=== PATIENT | male | born 1990 | race Two or more races ===

== ENCOUNTER 2024-11-14 19:45 | Emergency (ER) | payer MEDICAID, SELFPAY ==
[2024-11-14 20:02] VITALS: BP 125/70; PULSE 70; RESP 18; TEMP 36.4; O2SAT 97; BMI 29.9
--- NOTE | 2024-11-14 20:02 | ED.GENADULT ---
HPI - General Adult General Chief complaint: Skin/Abscess/Foreign Body Stated complaint: allergic reation to bed bugs? Source: patient, RN notes reviewed and old records reviewed Mode of arrival: ambulatory Limitations: no limitations History of Present Illness ED Provider: Aylin [facility] narrative: Patient is a 34-year-old male presenting to the emergency department with complaint of a mildly pruritic rash to bilateral legs and trunk for the past week. States that he is concerned about bedbugs as he recently moved. Denies any fevers, systemic symptoms. Denies any known contact with allergens. MD complaint: Rash Onset (ago): week(s) Related Data Previous Rx's ?Medication ?Instructions ?Recorded ketoconazole 2 % shampoo 1 appl topical 3XW 2 weeks #120 mL 11/14/24 Allergies Allergy/AdvReac Type Severity Reaction Status Date / Time No Known Allergies Allergy Verified 11/14/24 20:04 Review of Systems Review of Systems: as per HP Yes all other systems are reviewed and are negative Constitutional: Constitutional: Reports as per [facility] Physical Exam ED Vital Signs: Vital signs have been reviewed and appear to be correct. Blood pressure normal. Heart rate normal. Respiratory rate normal. Temperature normal. Oxygen saturation normal. Const General: cooperative, healthy appearing and no acute distress Orientation/consciousness: oriented to person, oriented to place, oriented to time and patient oriented x3 Limitations: no limitations HENMT Head: Yes normocephalic and Yes atraumatic Ears: external ears normal General nose exam: Normal external nose present Face and sinus: Yes face symmetric Mouth: oropharynx normal and moist mucous membranes Throat: Yes uvula midline Eyes Pupils: Equal, round and reactive pupils present Neck Neck: Yes normal visual inspection and Yes supple Resp Effort & Inspection: normal respiratory effort and able to speak in complete sentences Auscultation: clear to auscultation bilaterally Cardio Rate: regular rate Rhythm: regular rhythm Heart sounds: S1 normal heart sound present and S2 normal heart sound present GI Palpation (GI): Soft to palpation and nontender Auscultation: normoactive bowel sounds General: Yes no CVA tenderness Back/Spine/Pelvis Back: no CVA tenderness Skin General skin exam: elasticity normal and turgor normal Rashes: rashes noted (hyperpigmented macules of varying sizes to trunk, lower extremities) macules diffuse Neuro General: oriented to person, oriented to place, oriented to time, patient oriented x3, moves all extremities, no focal motor deficits and CN's II-XI intact bilaterally Cranial nerves: Yes Equal, round and reactive pupils present Cognition (Neuro): normal cognition Extrem General: Yes full ROM, Yes no pedal edema and Yes no calf tenderness Psych Mental Status: mental status grossly normal Affect: normal affect Thought process: Normal thought process present Medical Decision Making Medical Decision Making [facility] Narrative: Patient is a 34-year-old male presenting to the emergency department with complaint of a mildly pruritic rash to bilateral legs and trunk for the past week. On exam patient is awake, A+Ox3, VS WNL, afebrile, normal neurological exam without focal deficits, physical exam findings as above. Given reported symptoms and physical exam findings, initial differential includes but is not limited to tinea versicolor, contact dermatitis, seborrheic dermatitis. Rash is not consistent with bed bugs. Do not suspect TEN/SJS, DRESS, TTP/DIC, necrotizing fasciitis, meningococcemia, SSSS, TSS, anaphylaxis. will treat patient with ketoconazole shampoo. Discussed with patient the importance of washing his bedding, towels, clothing in hot soapy water and drying thoroughly. Instructed patient to allow the skin to remain open to air as much as possible at home. Instructed patient not to use bath towels. Return precautions discussed. Patient verbalized understanding of and agreement with plan. Differential Diagnosis Differential Diagnoses: The differential diagnosis associated with the presentation includes As per [facility] External Record Review External record reviewed: Inpatient record, Office record and Outpatient record Prescription Management I considered prescription management with: Other Discharge Plan Discharge Clinical Impression: Tinea versicolor Patient Disposition: Home, Self-Care Instructions: Tinea Versicolor (ED) Additional Instructions: You were evaluated in the emergency department today for a rash. Your rash is consistent with tinea versicolor which is a fungal infection of the skin. You are being treated with a topical antifungal shampoo. Use this as prescribed, applying the shampoo to all areas of your body with the rash. it is important that you wash all your clothing, bedding, towels in hot soapy water and dry them thoroughly. Do not or use bath towels without washing them. At home, allow your skin to be open to air as much as possible. Follow up with your primary care provider for ongoing symptoms. Return to the emergency department for any new or concerning symptoms. Prescriptions: New ketoconazole 2 % shampoo 1 appl topical 3XW 14 Days Qty: 120 1RF Print Language: Sierra Leonean
--- OUTSIDE RECORDS SUMMARY | 2024-11-14 20:25 | XMS_ITS ---
Author Organization [facility] Address [address] [place] [phone] Care Team Providers Care Workforce Planning Analyst Name Role Phone Baljit Foy Primary Care Provider REASON FOR VISIT lab result Encounters Encounter Location Date Provider Diagnosis [address] [id number] 11/01/2024 Baljit Foy Plan Of Treatment Next Appt Details Provider Name:Baljit Foy, 04/01/2025 02:00:00 PM, [address] [place] [address], [phone], Progress Notes * SUKHJINDER MckenziedayamiDOB: 1 (34 yo M)Acc No.[id number]:11/01/2024 Patient:?Burt SLAUGHTER :1990???Age:34 Y???Sex:Male Address:[address] [place] [address], [address] [address] * true * Date:? Generated for Nani dorota/Misa/eTransmitting on:?11/14/2024 08:24 PM EDT
--- OUTSIDE RECORDS SUMMARY | 2024-11-14 20:25 | XMS_ITS | Encounter Summary ---
Author Organization [facility] Address [address] [place] [address] Phone Care Team Providers Care Thermoforming Operator Name Role Phone Morteza Kamara MD Primary Care Provider Unavailabl e Encounter Details Date Type Department Care Team (Late st Contact Info) Description 03/30/2017 Conversion Encounter [facility] - [address] [address] Social History Tobacco Use Types Packs/Day Years Used Date Smoking Tobacco: Never Assessed Sex and Gender Information Value Date Recorded Sex Assigned at Not on file Legal Sex Male 4:22 PM EDT Gender Identity Not on file Sexual Orientation Not on file documented as of this encounter Plan of Treatment Not on file documented as of this encounter Visit Diagnoses Not on filedocumented in this encounter Care Teams Thermoforming Operator Relationship Specialty Start Date End Date Morteza Kamara MD PCP - General 03/24/17 documented as of this encounter
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
--- OUTSIDE RECORDS SUMMARY | 2024-11-14 20:25 | XMS_ITS | Encounter Summary ---
Author Organization [facility] Address [address] [place] [address] Care Team Providers Care Casino Gaming Inspector Name Role Phone Baljit Foy MD Primary Care Provider [phone] Encounter Details Date Type Department Care Team (Late st Contact Info) Description 10/24/2024 Lab Requisition [facility] - Main Lab [address] [place] [address] Baljit Foy MD [address] [place] [address] Unspecified infectious disease Social History Tobacco Use Types Packs/Day Years Used Date Smoking Tobacco: Never Assessed Sex and Gender Information Value Date Recorded Sex Assigned at Not on file Legal Sex Male 5:52 PM EDT Gender Identity Not on file Sexual Orientation Not on file documented as of this encounter Plan of Treatment Not on file documented as of this encounter Procedures Procedure Name Priority Date/Time Associated Diagnosis Comments OVA AND PARASITE EXAMINATION Routine 10/24/2024 10:08 AM EDT Unspecified infectious disease PINWORM PREP Routine 10/24/2024 10:08 AM EDT Unspecified infectious disease documented in this encounter Results * Pinworm prep (10/24/2024 10:08 AM EDT) Pinworm Prep Negative for E. vermicularis (PINWORM) eggs and Adult worms Negative 10/24/2024 7:07 PM EDT [facility] Paddle Anal structure / Unknown 10/24/2024 10:08 AM EDT 10/24/2024 6:03 PM EDT us Baljit Foy MD LAB MICROBIOLOGY - GENERAL OR DERABLES Final Result Performing Organization Address City/[facility]/ZIP Co de Phone Number [facility] [address] [place] [address], [place] [phone] * Ova and parasite examination (10/24/2024 10:08 AM EDT) Ova and Parasite No Ova or Parasite seen. 11/05/2024 11:29 AM EDT [facility] Stool Rectum structure / Unknown 10/24/2024 10:08 AM EDT 10/24/2024 6:03 PM EDT Narrative [facility] - 11/05/2024 11:29 AM EDT Special test request required for Coccidia and Microsporidia. us Baljit Foy MD LAB MICROBIOLOGY - GENERAL OR DERABLES Final Result Performing Organization Address [facility] Co de Phone Number [facility] [address] [place] [address], [place] [phone] documented in this encounter Visit Diagnoses Diagnosis Unspecified infectious disease documented in this encounter Care Teams Casino Gaming Inspector Relationship Specialty Start Date End Date Baljit Foy MD [address] [place] [address] PCP - General Internal Medicine 10/25/24 documented as of this encounter
--- OUTSIDE RECORDS SUMMARY | 2024-11-14 20:25 | XMS_ITS | Clinical Summary ---
Author Organization [facility] Address [address] [place] [phone] Phone Care Team Providers Care Resident Care Director Name Role Phone Morteza Kamara MD Primary Care Provider Unavailabl e Immunizations Immunization Administration Dates Next Due DTaP 5 01/12/1996, 3,03/13/1992,12/11,1991 Hep B, ped/adol 04/13/1998,01/11/1997,11/11/1996 Hib (PRP-T) 12/11/1992, 2,1991,09/13 IPV 01/12/1996, 3,1991,09/13 Influenza, injectable, trivalent 07/29/2003 MMR 01/12/1996,11/11/1993,12/11/1992 Meningococcal Conj (Menactra) MCV4P 06/28/2007 Td (adult) (MBL), 2 Lf tetan us toxoid, PF, adsorbed 04/22/2004 Family History Relation Name Status Comments Father Alive Father: Alive a nd well Maternal Grandmother Materna l grandmother: Migraines Mother Alive Mother: Alive a nd well Social History Tobacco Use Types Packs/Day Years Used Date Smoking Tobacco: Never Assessed Sex and Gender Information Value Date Recorded Sex Assigned at Not on file Legal Sex Male 4:22 PM EDT Gender Identity Not on file Sexual Orientation Not on file Plan of Treatment Health Maintenance Due Date Last Done Comments DTaP,Tdap,and Td Vaccines (6 - Tdap) 04/23/2004 04/22/2004, 01/12/1996, 04/13/1993, Additional history exists Varicella Vaccines (1 of 2 - 13+ 2-dose series) 2004 Influenza Vaccines (#1) 2024 07/29/2003 COVID-19 Vaccine (1 - 2023- season) 2024 HIB Vaccines Completed 12/11/1992, 02/13, 1991, Additional history exists IPV Vaccines Completed 01/12/1996, 03/16, 1991, Additional history exists MMR Vaccines Completed 01/12/1996, 10/14, 12/11/1992 Hepatitis B Vaccines Completed 04/13/1998, 01/11/1997, 11/11/1996 Meningococcal Vaccine Aged Out 06/28/2007 No lizzeth cha eligible based on patient's age to complete this topic HPV Vaccines Aged Out No longer eligi ble based on patient's age to complete this topic Hepatitis A Vaccines Aged Out No long er eligible based on patient's age to complete this topic Men B Vaccine Aged Out No longer elig ible based on patient's age to complete this topic Pneumococcal Vaccine Aged Out No long er eligible based on patient's age to complete this topic Care Teams Resident Care Director Relationship Specialty Start Date End Date Morteza Kamara MD PCP - General 03/24/17
--- OUTSIDE RECORDS SUMMARY | 2024-11-14 20:25 | XMS_ITS ---
Author Organization [facility] Address [address] [place] [id number] Care Team Providers Care Project Structural Engineer Name Role Phone Baljit Foy Primary Care Provider REASON FOR VISIT Work Note Encounters Encounter Location Date Provider Diagnosis [address] [id number] 11/05/2024 Baljit Foy Plan Of Treatment Next Appt Details Provider Name:Baljit Foy, 04/01/2025 02:00:00 PM, [address] [place] [address], [phone], Progress Notes * SUKHJINDER MckenziedayamiDOB: 1 (34 yo M)Acc No.[id number]:11/05/2024 Patient:?Burt SLAUGHTER :1990???Age:34 Y???Sex:Male Address:[address] [place] [address], [address] [address] * true * Date:? Generated for Nani dorota/Misa/eTransmitting on:?11/14/2024 08:24 PM EDT
--- OUTSIDE RECORDS SUMMARY | 2024-11-14 20:25 | XMS_ITS | Clinical Summary ---
Author Organization 299 [facility] Address [address] [place] [address] Phone Care Team Providers Care Lead Radiologic Technologist Name Role Phone Baljit Foy MD Primary Care Provider [phone] Allergies No known active allergies Encounters Date Type Department Care Team Description 10/30/2024 10:58 PM EDT - 10/31/2024 1:23 AM EDT Emergency [facility] Emergency [address] [place] [phone] Discharge Disposition: Home or Self Care 10/24/[address] [facility] - Main Lab [address] [place] [phone] Baljit Foy MD Unspecified infectious disease from Last 3 Months Medical History Medical History Date Comments Substance abuse Social History Tobacco Use Types Packs/Day Years Used Date Smoking Tobacco: Former Cigarettes Smokeless Tobacco: Current Tobacco Cessation:Ready to Q uit: Not Asked; Counseling Given: Not Answered Alcohol Use Standard Drinks/Week Comments Not Currently 0 (1 standard drink = 0.6 oz pur e alcohol) Sex and Gender Information Value Date Recorded Sex Assigned at Not on file Legal Sex Male 5:52 PM EDT Gender Identity Not on file Sexual Orientation Not on file Obstetrics History Last Filed Vital Signs Vital Sign Reading Time Taken Comments Blood Pressure 137/75 10/30/2024 11:04 PM EDT Pulse 74 10/30/2024 11:04 PM EDT Temperature 36.6 ??C (97.9 ??F) 10/30/2024 11:04 PM E DT Respiratory Rate 16 10/30/2024 11:04 PM EDT Oxygen Saturation 98% 10/30/2024 11:04 PM EDT Inhaled Oxygen Concentration - - Weight 97.5 kg (215 lb) 10/30/2024 11:04 PM EDT Height 172.7 cm (5' 8 ) 10/30/2024 11:04 PM EDT Body Mass Index 32.69 10/30/2024 11:04 PM EDT Plan of Treatment Health Maintenance Due Date Last Done Comments DTaP,Tdap,and Td Vaccines (1 - Tdap) 2010 Hepatitis B Vaccines (1 of 3 - 19+ 3-dose series) 2010 COVID-19 Vaccine ( - 2023-2 5 season) 2024 Influenza Vaccine (#1) 2024 Cholesterol Screening (Lipid Panel) 10/25/2024 Depression Screening 10/25/2024 HIV Screening 10/25/2024 Hepatitis C Screening 10/25/2024 Social Influencers of Health Screening 10/25/2024 HIB Vaccines Aged Out No longer eligi ble based on patient's age to complete this topic HPV Vaccines Aged Out No longer eligi ble based on patient's age to complete this topic Hepatitis A Vaccines Aged Out No long er eligible based on patient's age to complete this topic IPV Vaccines Aged Out No longer eligi ble based on patient's age to complete this topic MMR Vaccines Aged Out No longer eligi ble based on patient's age to complete this topic Meningococcal ACWY Vaccine Aged Out N o longer eligible based on patient's age to complete this topic Meningococcal B Vacine Aged Out No lo nger eligible based on patient's age to complete this topic Pneumococcal Vaccine: Pediat rics (0 to 5 Years) and At-Risk Patients (6 to 64 Years) Aged Out No longer eligible b ased on patient's age to complete this topic RSV Immunization Patients Un vinayak 20 months Aged Out No longer eligible b ased on patient's age to complete this topic Varicella Vaccines Aged Out No longer eligible based on patient's age to complete this topic Procedures Procedure Name Priority Date/Time Associated Diagnosis Comments PINWORM PREP Routine 10/24/2024 10:08 AM EDT Unspecified infectious disease OVA AND PARASITE EXAMINATION Routine 10/24/2024 10:08 AM EDT Unspecified infectious disease from Last 3 Months Results * Ova and parasite examination (10/24/2024 10:08 AM EDT) Ova and Parasite No Ova or Parasite seen. 11/05/2024 11:[address] [facility] Stool Rectum structure / Unknown 10/24/2024 10:08 AM EDT 10/24/2024 6:[address] [facility] - 11/05/2024 11:29 AM EDT Special test request required for Coccidia and Microsporidia. Baljit Foy MD LAB MICROBIOLOGY - GENERAL OR DERABLES Final Result Performing Organization Address City/[facility]/ZIP Co de Phone Number [facility] [address] [place] [address], * Pinworm prep (10/24/2024 10:08 AM EDT) Pinworm Prep Negative for E. vermicularis (PINWORM) eggs and Adult worms Negative 10/24/2024 7:[address] [facility] Paddle Anal structure / Unknown 10/24/2024 10:08 AM EDT 10/24/2024 6:03 PM EDT Baljit Foy MD LAB MICROBIOLOGY - GENERAL OR DERABLES Final Result Performing Organization Address City/[facility]/ZIP Co de Phone Number [facility] [address] [place] [address], from Last 3 Months Insurance MEDICAID - [place] Care Teams Lead Radiologic Technologist Relationship Specialty Start Date End Date Baljit Foy MD [address], [place] PCP - General Internal Medicine 10/25/24
[2024-11-14 20:30] VITALS: BP 125/70; PULSE 70; RESP 18; TEMP 36.4; O2SAT 97
== END 2024-11-14 20:30 | disposition home or self-care (01) ==
PROVIDERS: Emergency Provider Emergency Medicine Emergency Medical Services; PCP Internal Medicine
DX: B36.0 Pityriasis versicolor (principal); R21 Rash and other nonspecific skin eruption
CPT/HCPCS: 99282; 99283

== ENCOUNTER 2024-11-14 22:53 | Emergency (ER) | payer MEDICAID, SELFPAY ==
[2024-11-14 22:56] VITALS: BP 118/72; PULSE 96; O2SAT 96
[2024-11-14 23:14] VITALS: BMI 27.4
--- NOTE | 2024-11-14 23:15 | ED_ITS ---
HPI - General Adult General Chief complaint: General Medical Stated complaint: itchy groin, rash, feel like theyre being bitten Time Seen by Provider: 11/14/24 23:08 Source: patient and EMS Mode of arrival: EMS Limitations: no limitations History of Present Illness ED Provider: Dr. La Portillo HPI narrative: Patient comes to the emergency room via ambulance complaining of an itchy groin. Patient was seen here 3 hours ago, diagnosed with tinea versicolor. Patient has not picked up his medication yet. Patient states that he has an itchy groin and can not sleep. Patient states that he has had a rash for several weeks. The rash covers the groin area and extends down his thighs and towards the buttocks Related Data Previous Rx's ?Medication ?Instructions ?Recorded hydroxyzine HCl 25 mg tablet 25 mg PO TID PRN itching #14 tabs 11/14/24 ketoconazole 2 % shampoo 1 appl topical 3XW 2 weeks #120 mL 11/14/24 terbinafine HCl 1 % topical cream 1 appl topical BID #30 grams 11/14/24 (Antifungal (terbinafine)) Allergies Allergy/AdvReac Type Severity Reaction Status Date / Time No Known Allergies Allergy Verified 11/14/24 23:14 Review of Systems Review of Systems: Constitutional : No Weight loss, No Fever, No Chills, No Night Sweats, No Fatigue, No Malaise ENT/Mouth : No Hearing loss, No Ear Pain, No Nasal Congestion, No Sinus Pain, No Hoarseness, No sore throat, No Rhinorrhea, No Swallowing Difficulty Eyes: No Eye Pain, No Swelling, No Redness, No Foreign Body, No Discharge, No Vision Changes Cardiovascular : No Chest Pain, No SOB, No Dyspnea on Exertion, No Orthopnea, No Edema, No Palpitations Respiratory : No Cough, No Sputum, No Wheezing, No Smoke Exposure, No Dyspnea Gastrointestinal : No Nausea, No Vomiting, No Diarrhea, No Constipation, No abdominal Pain, No Hematochezia, No Melena Genitourinary : no irregular bleeding, No Dysuria, No Urinary Frequency, No Hematuria, No Urinary Incontinence, No Urgency, No Flank Pain, No Urinary Flow Changes, No Hesitancy Musculoskeletal : No joint pain, No Myalgias, No Joint Swelling Skin : complaining of chronic itchy rash in the groin area down the legs and back to the buttocks Neuro : No Weakness, No Numbness, No Paresthesias, No Loss of Consciousness, No Dizziness, No Headache Psych : No Anxiety/Panic, No Depression, No SI/HI/AH/VH, No Social Issues, Heme/Lymph: No Bruising, No Bleeding,No Lymphadenopathy Endocrine : No Polyuria, No Polydipsia, No Temperature Intolerance Physical Exam ED Vital Signs: BMI result Body Mass Index 21.3 Const Other: Appearance: Alert. Oriented X3. No acute distress. Eyes: Pupils equal, round and reactive to light. ENT: Pharynx normal. Neck: Normal inspection. Neck supple. No lymph nodes noted. No crepitus CVS: Normal heart rate and rhythm. Pulses normal. Normal S1 and S2 Respiratory: No respiratory distress. Breath sounds normal. No Wheezing. No rales Abdomen: Soft and nontender. No rigidity. No distention. : Normal male genitalia, no discharge, no obvious signs of pediculosis. Patient does have a fungal infection Skin: Skin warm and dry. Normal skin color. Normal skin turgor. Extremities: No lower extremity edema. No Lacerations. No Rash Neuro: Oriented X 3. No motor deficit. No sensory deficit. Moving all extremities. No slurred speech. CN 2 through 12 grossly intact Psych: calm, cooperative, normal affect Medical Decision Making Medical Decision Making MDM Narrative: earlier today patient was seen here. I agree that the patient has a fungal infection. Previously diagnosed with tinea versicolor. Heart rate, patient reports that this is itchy. I do not see any signs of scabies versus bedbugs versus pediculosis. I believe patient has tinea cruris. Patient was given a dose of p.o. hydroxyzine. 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 I offered to recent his medications to a 24 hour pharmacy, patient declined. Discharge Plan Discharge Clinical Impression: Tinea cruris Patient Disposition: Home, Self-Care Instructions: Skin Yeast Infection (ED) Additional Instructions: Please follow-up with your primary care physician tomorrow. If you have any worsening or new symptoms, please return to the emergency room or call 911 Prescriptions: New terbinafine HCl [Antifungal (terbinafine)] 1 % cream 1 appl topical BID Qty: 30 0RF hydroxyzine HCl 25 mg tablet 25 mg PO TID PRN (Reason: itching) Qty: 14 0RF No Action ketoconazole 2 % shampoo 1 appl topical 3XW 14 Days Qty: 120 1RF Print Language: Indonesian
[2024-11-14 23:25] VITALS: BP 114/74; PULSE 66; RESP 20; TEMP 36.9; O2SAT 98
[2024-11-14] MEDS: hydrOXYzine HCL 25 MG TABLET PO (23:43)
[2024-11-15 00:02] VITALS: BP 114/74; PULSE 66; RESP 20; TEMP 36.9; O2SAT 98
== END 2024-11-14 23:45 | disposition home or self-care (01) ==
PROVIDERS: Emergency Provider Emergency Medicine
DX: B35.6 Tinea cruris (principal)
CPT/HCPCS: 99283

== ENCOUNTER 2024-12-23 13:35 | Emergency (ER) | payer MEDICAID, SELFPAY ==
[2024-12-23 13:48] VITALS: BP 144/95; PULSE 84; RESP 18; TEMP 37.1; O2SAT 100; BMI 28.8
--- NOTE | 2024-12-23 13:55 | ED.GENADULT ---
HPI - General Adult General Chief complaint: General Medical Stated complaint: L Index Finger Swollen Back is Bleeding Time Seen by Provider: 12/23/24 13:53 Source: patient, RN notes reviewed and old records reviewed Mode of arrival: ambulatory Limitations: no limitations History of Present Illness ED Provider: Shruthi DUGAN narrative: 34-year-old male presents for evaluation of left index finger swelling and a rash to his back. the patient reports that for the last 2 days he has noted a swelling behind his nail of the left index finger he reports he does not bite his fingernails, he has not been gardening and does not have any wounds to the area denies any fevers, chills. He is able to flex and extend the entire index finger he also complains of a rash to his lower back and groin. He states it feels like my clothes are catching on my skin and moving on their own. He reports he just spent a week at [facility] for mental health issues. Denies any substance abuse Related Data Previous Rx's ?Medication ?Instructions ?Recorded hydroxyzine HCl 25 mg tablet 25 mg PO TID PRN itching #14 tabs 11/14/24 ketoconazole 2 % shampoo 1 appl topical 3XW 2 weeks #120 mL 11/14/24 terbinafine HCl 1 % topical cream 1 appl topical BID #30 grams 11/14/24 (Antifungal (terbinafine)) cephalexin 500 mg capsule 500 mg PO QID #40 caps 12/23/24 ketoconazole 2 % topical cream 1 appl topical BID 2 weeks #30 12/23/24 grams Allergies Allergy/AdvReac Type Severity Reaction Status Date / Time No Known Allergies Allergy Verified 12/23/24 13:48 Review of Systems Constitutional: Constitutional: Denies body ache(s), Denies chills, Denies fever(s) and Denies frequent falls Eyes: Eyes: Denies blurry vision ENT: Denies vertigo and Denies dizziness Cardiovascular: Cardiovascular: Denies chest pain and Denies dyspnea Respiratory: Respiratory: Denies cough and Denies dyspnea Gastrointestinal: Gastrointestinal: Denies abdominal pain, Denies nausea and Denies vomiting Musculoskeletal: Musculoskeletal: Denies back pain, Denies arthralgias, Reports joint swelling and Denies limited range of motion Integumentary/Breasts: Skin/Breast: Reports erythema, Reports skin pain, Reports skin swelling and Denies wounds Neurologic: Denies vertigo, Denies dizziness and Denies frequent falls Psychiatric: Psychiatric: Denies anxiety PMFSH Social History Social History Advance Directives: No Advance Directives Information Provided: Yes Do you have a plan to hurt others: No Plan Physical Exam ED Vital Signs: Vital Signs - 24 hr 12/23/24 13:48 Temperature 98.8 F Pulse Rate 84 Respiratory Rate 18 Blood Pressure 144/95 H Pulse Oximetry 100 BMI result Body Mass Index 28.8 Skin Other: there is mild erythema of the edema to the distal right index finger just proximal to the nail bed. This area is tender to palpation. There is no drainage from the ear. The patient has full range of motion with flexion-extension of the left 2nd MCP joint, PIP joint, and D IP joint. Patient has excoriation meléndez to the lower back and lower abdomen/ groin. There is diffuse macular rash, no significant beefy red erythema or open wounds, no drainage. Medical Decision Making Medical Decision Making MDM Narrative: 34-year-old male presents for evaluation of 2 separate complaints including a swollen, red left index finger consistent with a paronychia. . Does not appear amenable to incision and drainage at this time. I did discuss this with the patient and he would like to defer this treatment. We will treat with cephalexin q.i.d. times 10 days and warm compresses. Return precautions were given. The rash to his back and lower abdomen is not consistent with scabies or bedbugs but rather a fungal infection. We will treat with ketoconazole. Differential Diagnosis Differential Diagnoses: The differential diagnosis associated with the presentation includes Paronychia Cellulitis Abscess Dermatitis Tinea corporis Discharge Plan Discharge Clinical Impression: Paronychia of finger, Tinea corporis Patient Disposition: Home, Self-Care Instructions: Paronychia (ED), Skin Yeast Infection (ED) Additional Instructions: take the cephalexin 4 times daily for 1 week to treat the skin infection on your finger. Apply the antifungal cream to the affected area of your lower back, lower abdomen and groin follow-up with your primary doctor, return for worsening symptoms Prescriptions: New cephalexin 500 mg capsule 500 mg PO QID Qty: 40 0RF ketoconazole 2 % cream 1 appl topical BID 14 Days Qty: 30 0RF No Action ketoconazole 2 % shampoo 1 appl topical 3XW 14 Days Qty: 120 1RF terbinafine HCl [Antifungal (terbinafine)] 1 % cream 1 appl topical BID Qty: 30 0RF hydroxyzine HCl 25 mg tablet 25 mg PO TID PRN (Reason: itching) Qty: 14 0RF Discharge Date/Time: 12/23/24 14:21 Print Language: Icelandic
--- OUTSIDE RECORDS SUMMARY | 2024-12-23 14:17 | XMS_ITS | Encounter Summary ---
Author Organization [facility] Address [address] [place] [address] Care Team Providers Care Cattle Broker Name Role Phone Baljit Foy MD Primary Care Provider [phone] Encounter Details Date Type Department Care Team (Late st Contact Info) Description 10/24/2024 Lab Requisition [facility] - Main Lab [address] [place] [address] Baljit Foy MD [address] [place] [address] Unspecified infectious disease Social History Tobacco Use [...] Adult worms Negative 10/24/2024 7:07 PM EDT [facility] ([facility] Paddle Anal structure / Unknown 10/24/2024 10:08 AM EDT 10/24/2024 6:03 PM EDT us Baljit Foy MD LAB MICROBIOLOGY - GENERAL OR DERABLES Final Result Performing Organization Address City/[facility]/ZIP Co de Phone Number [facility] [address] [place] [address], [place] [phone] * Ova and parasite examination (10/24/2024 10:08 AM EDT) Ova and Parasite No Ova or Parasite seen. 11/05/2024 11:29 AM EDT [facility] Stool Rectum structure / Unknown 10/24/2024 10:08 AM EDT 10/24/2024 6:03 PM EDT Narrative [facility] - 11/05/2024 11:29 AM EDT Special test request required for Coccidia and Microsporidia. us Baljit Foy MD LAB MICROBIOLOGY - GENERAL OR DERABLES Final Result Performing Organization Address [facility] Co de Phone Number [facility] [address] [place] [address], [place] [phone] documented in this encounter Visit Diagnoses Diagnosis Unspecified infectious disease documented in this encounter Care Teams Cattle Broker Relationship Specialty Start Date End Date Baljit Foy MD [address] [place] [address] PCP - General Internal Medicine 10/25/24 documented as of this encounter
--- OUTSIDE RECORDS SUMMARY | 2024-12-23 14:17 | XMS_ITS | Encounter Summary ---
Author Organization [facility] Address [address] [place] [phone] Phone Care Team Providers Care Importer Exporter Name Role Phone Morteza Kamara MD Primary Care Provider Unavailabl e Encounter Details Date Type Department Care Team (Late st Contact Info) Description 03/30/2017 Conversion Encounter [facility] - [address] [address] Social History Tobacco Use Types Packs/Day Years [...] on filedocumented in this encounter Care Teams Importer Exporter Relationship Specialty Start Date End Date Morteza Kamara MD PCP - General 03/24/17 documented as of this encounter
--- OUTSIDE RECORDS SUMMARY | 2024-12-23 14:17 | XMS_ITS | Clinical Summary ---
Author Organization [facility] Address [address] [place] [address] Phone Care Team Providers Care Horse And Wagon Driver Name Role Phone Morteza Kamara MD Primary [...] age to complete this topic Care Teams Horse And Wagon Driver Relationship Specialty Start Date End Date Morteza Kamara MD PCP - General 03/24/17
--- OUTSIDE RECORDS SUMMARY | 2024-12-23 14:17 | XMS_ITS | Clinical Summary ---
Author Organization 299 [facility] Address [address] [place] [address] Phone Care Team Providers Care Ship Rigger Apprentice Name Role Phone Baljit Foy MD Primary Care Provider [phone] Allergies No known active allergies Encounters Date Type Department Care Team Description 10/30/2024 10:58 PM EDT - 10/31/2024 1:23 AM EDT Emergency [facility] Emergency [address] [place] [phone] Discharge Disposition: Home or Self Care 10/24/2024 Lab Requisition [facility] - Main Lab [address] [place] [phone] Baljit Foy MD Unspecified infectious disease from Last 3 Months Medical History Medical History Date Comments Substance abuse ([facility] V24, [facility] V28) Social History Tobacco Use Types Packs/Day Years [...] Vaccine ( - 2023-2 5 season) 2024 Cholesterol Screening (Lipid Panel) 10/25/2024 Depression Screening 10/25/2024 HIV Screening 10/25/2024 Hepatitis C Screening 10/25/2024 Social Influencers of Health Screening 10/25/2024 Influenza Vaccine (Season Ended) 2025 HIB Vaccines Aged Out No longer eligi [...] age to complete this topic Meningococcal B Vaccine Aged Out No l onger eligible based on patient's age to complete [...] or Parasite seen. 11/05/2024 11:29 AM EDT [facility] Stool Rectum structure / Unknown 10/24/2024 10:08 AM EDT 10/24/2024 6:03 PM EDT Narrative [facility] - 11/05/2024 11:29 AM EDT Special test request required for Coccidia and Microsporidia. Baljit Foy MD LAB MICROBIOLOGY - GENERAL OR DERABLES Final Result [facility] [address] [place] [address], [place] [phone] * Pinworm prep (10/24/2024 10:08 AM EDT) Pinworm Prep Negative for E. vermicularis (PINWORM) eggs and Adult worms Negative 10/24/2024 7:07 PM EDT [facility] Paddle Anal structure / Unknown 10/24/2024 10:08 AM EDT 10/24/2024 6:03 PM EDT Baljit Foy MD LAB MICROBIOLOGY - GENERAL OR DERABLES Final Result [facility] [address] [place] [address], [place] [phone] from Last 3 Months Insurance MEDICAID - [place] Care Teams Ship Rigger Apprentice Relationship Specialty Start Date End Date Baljit Foy MD [address] [place], [place] PCP - General Internal Medicine 10/25/24
== END 2024-12-23 14:21 | disposition home or self-care (01) ==
PROVIDERS: Emergency Provider Emergency Medicine Emergency Medical Services
DX: L03.012 Cellulitis of left finger (principal); B35.4 Tinea corporis; R21 Rash and other nonspecific skin eruption
CPT/HCPCS: 99281; 99283

== ENCOUNTER 2025-06-04 18:50 | Outpatient (REF) | payer MEDICAID, SELFPAY ==
--- OUTSIDE RECORDS SUMMARY | 2025-01-24 05:00 | XMS_ITS ---
Author Organization [facility] Address [address] [place] [address] Care Team Providers Care Concrete Float Maker Name Role Phone Baljit Foy Primary Care Provider REASON FOR VISIT Office; 6 week f/u, Symptom screening by [facility] staff pre entrance to clinic, HUDDLE: Any vax?, VISIT:Skin; Tobacco; metabolic labs; mood Medications Medication SIG (Take, Route, Frequency, Duration) Notes Start Date End Date Status LUNESTA 2 mg 1 tab(s) orally once a day (at bedtime) Active ESCITALOPRAM 10 mg 1 tab(s) orally once a day Active LORAZEPAM 0.5 mg 1 tab(s) orally Two times a day as needed Active METHADONE 10 mg/5 mL 5 mL orally every 8 hours 45 mg Active PRAZOSIN 2 mg 1 cap(s) orally at bedtime Active HYDROXYZINE hydrochloride 25 mg 1 tab(s) orally 3 times a day for 14 days 11/26/2024 Active KETOCONAZOLE TOPICAL 2% 1 michi applied to pically every 3 days for 21 days 12/09/2024 Active BETAMETHASONE TOPICAL valerate 0.1% 1 michi applied topically 2 times a day for 14 days 11/29/2024 Active Encounters Encounter Location Date Provider Diagnosis [facility] [address] [place] [address] 01/24/2025 Baljit Foy Encounter for screening for COVID-19 Z11.52 Assessments Encounter Date Diagnosis (ICD Code) Assessment Notes Treatment Notes Treatment Clinical Notes Section Notes 01/24/2025 Encounter for screening for COVID-19 (ICD-10 - [...] you are having concerning symptoms for COVID-19. 01/24/2025 Other Plan Of Treatment Treatment Notes Assessment Notes Encounter for screening for COVID-19 Cov id screening is negative. Discussed in detail with [...] you are having concerning symptoms for COVID-19. Progress Notes * SLAUGHTERBurtDOB: 1 (34 yo M)Acc No.[id number]:01/24/2025 Progress Notes Patient: Burt LOUIS Provider: Preston Foy MD :1990 A ge:34 Y S ex:Male Date:01/24/2025 Address:[address] [place], [place] [id number] Subjective: * Chief Complaints: * 1 . Office; 6 week f/u. 2. Symptom screening by [facility] staff pre entrance to clinic. 3. HUDDLE: Any vax?. 4. VISIT: Skin; Tobacco; metabolic labs; mood. * HPI: G eneral: Symptom Screen: - Fever in the last 1 week? Patient denies - New or worsening cough in the last 1 week? Patient denies. - Contact will known COVID exposure in last 5 days? Patient denies -new rash within last 3 weeks? Patient denies - Have you received the COVID-19 vaccine? no - Have you received COVID-19 booster? no - Have you been tested positive for COVID -19 in the last 7 days? If so where and why? RN/MA: AB: HUDDLE: Any vax?, VISIT: Skin; Tobacco; metabolic labs; mood. As of 11:05 had not arived for 9:00 appt [phone] has calling restrictioons. * ROS: N o acute C/P no acute SOB, No problem with urine, No heartburn or abdominal pain. Endorses being able to climb one fight of stairs without stopping due to SOB, Mood: stable, appetite: good, sleeping well. Denies new skin rashes. * Medical History: * Medications: T aking METHADONE 10 mg/5 mL solution 5 mL orally every 8 hours 45 mg, Taking PRAZOSIN 2 mg capsule 1 cap(s) orally at bedtime , Taking ESCITALOPRAM 10 mg tablet 1 tab(s) orally once a day , Taking LUNESTA 2 mg tablet 1 tab(s) orally once a day (at bedtime) , Taking LORAZEPAM 0.5 mg tablet 1 tab(s) orally Two times a day as needed , Taking HYDROXYZINE hydrochloride 25 mg tablet 1 tab(s) orally 3 times a day , Taking BETAMETHASONE TOPICAL valerate 0.1% cream 1 michi applied topically 2 times a day , Taking KETOCONAZOLE TOPICAL 2% shampoo 1 michi applied topically every 3 days Objective: * Vitals: Assessment: * Assessment: 1. E ncounter for screening for COVID-19 - Z11.52 (Primary) Plan: * Treatment: * Images: Billing Information: * Visit Code: * Procedure Codes: Care Plan Details* * Electronic signature of Andlilliam Foy MD on 06/04/2025 at 10:23 PM EDT Sign off status: Pending * Provider: Preston Foy MD Date: 0 01/24/2025 Generated for Richard raya/Misa/Fracisco on: 1 10:23 PM EDT
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
--- OUTSIDE RECORDS SUMMARY | 2025-04-01 10:30 | XMS_ITS ---
Author Organization [facility] Address [address] [place] [address] Care Team Providers Care Grid Caster Name Role Phone Baljit Foy Primary Care Provider Sari Benjamin Unavailable [phone] REASON FOR VISIT change plan from [facility] to [address] Encounters Encounter Location Date Provider Diagnosis [address] [address] 04/01/2025 Sari Benjamin Plan Of Treatment No Information Progress Notes * Burt SLAUGHTERDOB: 1 (34 yo M)Acc No.[id number]:04/01/2025 Case Management New Patient: Burt LOUIS Provider: Juana Benjamin :1990 A ge:34 Y S ex:Male Date:04/01/2025 Address:[address] [place], [place] [phone] Pcp:Baljit Foy Subjective: * Chief Complaints: * 1 . change plan from [facility] to [address] Objective: Assessment: Plan: * Treatment: * Images: Billing Information: * Visit Code: * Procedure Codes: Care Plan Details* * Electronic signature of Danna Zurita on 06/04/2025 at 08:58 AM EDT Sign off status: Pending * Provider: Juana Benjamin Date: 0 04/01/2025 Generated for Nani dorota/Famaximilian/eTransmitting on: 1 08:58 AM EDT
--- OUTSIDE RECORDS SUMMARY | 2025-04-26 17:00 | XMS_ITS ---
Author Organization [facility] Address [address] [place] [address] Care Team Providers Care Project Designer Name Role Phone Baljit Foy Primary Care Provider [phone] Migration, Provider Unavailable Unavailable REASON FOR VISIT [facility] To [facility] Conversion Encounter Medications Medication SIG (Take, Route, Frequency, Duration) Notes Start Date End Date Status LORazepam 0.5 MG 1 tab(s) orally Two times a day as needed Active Escitalopram Oxalate 10 MG 1 tab(s) oral ly once a day Active Lunesta 2 MG 1 tab(s) orally once a day (at bedtime) Active Methadone HCl 10 MG/5ML 5 mL orally ever y 8 hours Active Prazosin HCl 2 MG 1 cap(s) orally at bedtime Active hydrOXYzine HCl 25 MG 1 tab(s) orally 3 times a day for 14 days 11/26/2024 Active Betamethasone Valerate 0.1 % 1 michi appli ed topically 2 times a day for 14 days Active Ketoconazole 2 % 1 michi applied topica lly every 3 days for 21 days Active Encounters Encounter Location Date Provider Diagnosis [address] [place] [address] 04/26/2025 Provider Migration Plan Of Treatment No Information Progress Notes * Burt SLAUGHTERDOB: 1 (34 yo M)Acc No.[id number]:04/26/2025 Patient: Burt LOUIS Provider: :1990 A ge:34 Y S ex:Male Date:04/26/2025 Address:[address] [facility] Pcp:Baljit Foy Subjective: * Chief Complaints: * 1 . [facility] To [facility] Conversion Encounter. * Medical History: * Medications: T aking Methadone HCl 10 MG/5ML Solution 5 mL orally every 8 hours , Taking Prazosin HCl 2 MG Capsule 1 cap(s) orally at bedtime , Taking Escitalopram Oxalate 10 MG Tablet 1 tab(s) orally once a day , Taking Lunesta 2 MG Tablet 1 tab(s) orally once a day (at bedtime) , Taking LORazepam 0.5 MG Tablet 1 tab(s) orally Two times a day as needed , Taking hydrOXYzine HCl 25 MG Tablet 1 tab(s) orally 3 times a day , Taking Betamethasone Valerate 0.1 % Cream 1 michi applied topically 2 times a day , Taking Ketoconazole 2 % Shampoo 1 michi applied topically every 3 days Objective: * Vitals: Assessment: Plan: * Treatment: * Images: Billing Information: * Visit Code: * Procedure Codes: * Electronic signature of Prov ider Migration on 06/04/2025 at 08:58 AM EDT Sign off status: Pending * Provider: Date: 0 04/26/2025 Generated for Richard raya/Misa/Fracisco on: 1 08:58 AM EDT
--- OUTSIDE RECORDS SUMMARY | 2025-06-03 11:40 | XMS_ITS ---
Author Organization [facility] Address [address] [place] [phone] Care Team Providers Care Station Mechanic Name Role Phone Baljit Foy Primary Care Provider REASON FOR VISIT Office; F/U, Symptom screening by [facility] staff pre entrance to clinic, HUDDLE: Any vax? Where is he getting care? Housing?, VISIT: SA; tobacco; skiun;l depression Encounters Encounter Location Date Provider Diagnosis [address] [place] [address] 06/03/2025 Baljit Foy Encounter for screening for COVID-19 Z11.52 Assessments Encounter Date Diagnosis (ICD Code) Assessment Notes Treatment Notes Treatment Clinical Notes Section Notes 06/03/2025 Encounter for screening for COVID-19 (ICD-10 - [...] you are having concerning symptoms for COVID-19. 06/03/2025 Other Plan Of Treatment Treatment Notes Assessment [...] * Burt SLAUGHTERDOB: 1 (34 yo M)Acc No.[id number]:06/03/2025 Progress Notes Patient: Burt LOUIS Provider: Preston Foy MD :1990 A ge:34 Y S ex:Male Date:06/03/2025 Address:[address] [place], [place] [phone] Subjective: * Chief Complaints: * 1 . Office; F/U. 2. Symptom screening by [facility] staff pre entrance to clinic. 3. HUDDLE: Any vax? Where is he getting care? Housing?. 4. VISIT: SA; tobacco; skiun;l depression. * HPI: G eneral: Symptom Screen: - [...] 7 days? If so where and why? RN/MA:. * ROS: N o acute C/P no acute SOB, No problem with urine, No heartburn or abdominal pain. Endorses being able to climb one fight of stairs without stopping due to SOB, Mood: stable, appetite: good, sleeping well. Denies new skin rashes. * Medical History: Objective: * Vitals: Assessment: * Assessment: 1. E ncounter for screening for COVID-19 - Z11.52 (Primary) Plan: * Treatment: * Images: Billing Information: * Visit Code: * Procedure Codes: Care Plan Details* * Electronic signature of More Foy MD on 06/04/2025 at 08:58 AM EDT Sign off status: Pending * Provider: Preston Foy MD Date: Generated for Richard raya/Misa/eTransmitting on: 08:58 AM EDT
--- OUTSIDE RECORDS SUMMARY | 2025-06-04 22:24 | XMS_ITS | Encounter Summary ---
Author Organization [facility] Address [address] [place] [address] Phone Care Team Providers Care Tuber Machine Cutter Name Role Phone Morteza Kamara MD Primary Care Provider Unavailabl e Encounter Details Date Type Department Care Team (Late st Contact Info) Description 03/30/2017 Conversion Encounter [facility] - [address] [address] Social History Tobacco Use Types Packs/Day Years [...] on filedocumented in this encounter Care Teams Tuber Machine Cutter Relationship Specialty Start Date End Date Morteza Kamara MD PCP - General 03/24/17 documented as of this encounter
--- OUTSIDE RECORDS SUMMARY | 2025-06-04 22:24 | XMS_ITS | Clinical Summary ---
Author Organization [facility] Address [address] [place] [address] Phone Care Team Providers Care Plant And Equipment Worker Name Role Phone Morteza Kamara MD Primary [...] of 2 - 13+ 2-dose series) 2004 HPV Vaccines (1 - 3-dose SCDM series) 2018 Influenza Vaccines (#1) 2025 07/29/2003 COVID-19 Vaccine ( season) 2025 HIB Vaccines Completed [birth year]/11/1991, 02/13, 1990, Additional [...] age to complete this topic Care Teams Plant And Equipment Worker Relationship Specialty Start Date End Date Morteza Kamara MD PCP - General 03/24/17
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
[2025-06-05 05:24] LABS: CT PCR Urine NOT DETECTED (Not Detect.); NG PCR Urine NOT DETECTED (Not Detect.)
== END 2025-06-04 18:51 | disposition home or self-care (01) ==
LOC: HO.HHCLNP 18:50
DX: Z20.2 Contact with and (suspected) exposure to infections with a predominantly sexual mode of transmission (principal)
CPT/HCPCS: 87491; 87591